=== PATIENT | female | born 1995 | race African-American/Black ===

== ENCOUNTER 2017-05-01 10:45 | Emergency (ER) | payer OTHER ==
[~2017-05-01] VITALS: Ht 175.3 cm; Wt 77.1 kg
[2017-05-01 10:54] VITALS: BP_SYST 122
[2017-05-01 12:00] VITALS: BP_SYST 122
== END 2017-05-01 12:00 | disposition home or self-care (01) ==
LOC: SED 10:45
DX: J06.9 Acute upper respiratory infection, unspecified (principal); J45.909 Unspecified asthma, uncomplicated
CPT/HCPCS: 36415; 86710; 99284

== ENCOUNTER 2020-06-02 19:27 | Emergency (ER) | payer MEDICAID, OTHER ==
[~2020-06-02] VITALS: Ht 177.8 cm; Wt 79.4 kg
[2020-06-02 19:35] VITALS: BP_SYST 152
[2020-06-02] MEDS ORDERED: methylPREDNISolone SOD SUCC 500 MG/VIAL (Solu-MEDROL) IV ONE (20:30)
[2020-06-02] MEDS ORDERED: DIPHENHYDRAMINE INJ 50 MG/ML VIAL IVP ONE (20:30)
[2020-06-02] MEDS ORDERED: FAMOTIDINE PF 20 MG/2 ML VIAL IVP ONE (20:30)
[2020-06-02] MEDS ORDERED: methylPREDNISolone SOD SUCC/PF 62.5 MG/ML VIAL ONE (20:39)
[2020-06-02] MEDS ORDERED: methylPREDNISolone SOD SUCC/PF 62.5 MG/ML VIAL IV ONE (21:00)
[2020-06-02] MEDS ORDERED: FAMO20TA8 PO (22:48)
[2020-06-02] MEDS ORDERED: EPIN0.3P3 IM (22:48)
[2020-06-02] MEDS ORDERED: PRED20TA PO (22:48)
[2020-06-02 23:03] VITALS: BP_SYST 133
== END 2020-06-02 23:03 | disposition home or self-care (01) ==
LOC: SED 19:27
DX: T78.40XA Allergy, unspecified, initial encounter (principal); J45.909 Unspecified asthma, uncomplicated; X58.XXXA Exposure to other specified factors, initial encounter
CPT/HCPCS: 81025; 96374; 96375; 99284; J1200; J2930; J3490